=== PATIENT | female | born 1965 | race African-American/Black ===

== ENCOUNTER 2022-01-21 03:59 | Emergency (ER) | payer MEDICAID ==
[~2022-01-21] VITALS: Ht 172.7 cm; Wt 108.0 kg
[2022-01-21] MEDS ORDERED: KETOROLAC 30MG/ML VIAL IV STA (04:22)
[2022-01-21] MEDS ORDERED: SODIUM CHLORIDE 0.9% 1,000 ML IV ONE (04:30)
[2022-01-21] MEDS ORDERED: CLINDAMYCIN 600 MG in DEXTROSE 5% WATER 50 ML IV ONE (04:30)
[2022-01-21] MEDS ORDERED: CLINDAMYCIN 600 MG PREMIX 50 ML IV NR (04:30)
[2022-01-21 04:35] LABS: BASOPHILS % 0.3 % (0.0-2.0); EOSINOPHILS % 1.3 % (0.0-5.0); HEMATOCRIT. 31.9 % (36.0-48.0); HEMOGLOBIN. 10.9 g/dL (12.0-16.0); LYMPHOCYTES % 13.4 % (20.0-50.0); MEAN CORPUSCULAR HEMOGLOBIN 29.2 pg (28.0-32.0); MEAN CORPUSCULAR VOLUME 85.3 fL (81.0-99.0); MEAN PLATELET VOLUME 7.4 fl (7.4-10.4); MONOCYTES % 7.4 % (2.0-8.0); NEUTROPHILS % 77.6 % (40.0-76.0); PLATELET 229 x1000/uL (130-400); RED BLOOD CELL COUNT 3.73 mill/uL (4.2-5.4); RED CELL DISTRIBUTION WIDTH 13.3 % (11.6-14.6)
[2022-01-21 04:42] LABS: CHLORIDE 107 mEq/L (98-107)
[2022-01-21] MEDS ORDERED: CLIN300C12 MT (05:43)
[2022-01-21] MEDS ORDERED: IBUP-2029 MT (05:43)
[2022-01-21 05:50] VITALS: BP 138/81
== END 2022-01-21 05:50 | disposition home or self-care (01) ==
LOC: ER 03:59
DX: K04.7 Periapical abscess without sinus (principal); I10 Essential (primary) hypertension; R00.0 Tachycardia, unspecified; Z86.73 Personal history of transient ischemic attack (TIA), and cerebral infarction without residual deficits
CPT/HCPCS: 36415; 80053; 85025; 96365; 96375; 99284; J1885; J3490; J7030; J7060